=== PATIENT | female | born 1975 | race Two or more races ===

== ENCOUNTER 2024-05-08 05:49 | Day surgery (SDC) | payer OTHER ==
[~2024-05-08 05:49] MED LIST: AMPICILLIN TRI500 MG PO; CLONAZEPAM0.5 MG PO; HORIZANT300 MG PO
[2024-05-08] MEDS ORDERED: CEFTRIAXONE SODIUM 2,000 MG VIAL IV ONE (10:45)
[2024-05-08] MEDS ORDERED: METRONIDAZOLE/SODIUM CHLORIDE 500 MG/100 ML PIGGYBACK IV ONE (10:45)
[2024-05-08] MEDS ORDERED: PERCOCET 5-3251 EACH PO (11:49)
[2024-05-08] MEDS ORDERED: AMOX1TAB5 PO (11:49)
[2024-05-08] MEDS ORDERED: PEPCID AC20 MG PO (11:49)
== END 2024-05-08 16:50 | disposition home or self-care (01) ==
LOC: CIR.AMB 05:49
PROVIDERS: ATTEND Surgery
DX: L05.01 Pilonidal cyst with abscess (principal); Z88.6 Allergy status to analgesic agent; Z91.013 Allergy to seafood; Z88.4 Allergy status to anesthetic agent; J44.9 Chronic obstructive pulmonary disease, unspecified; F41.9 Anxiety disorder, unspecified